=== PATIENT | female | born 1960 | race Caucasian/White ===

== ENCOUNTER 2017-10-04 17:50 | Emergency (ER) | payer MEDICAID ==
[~2017-10-04] VITALS: Ht 162.6 cm; Wt 68.2 kg
[2017-10-04 18:18] VITALS: Ht 162.6 cm; Wt 68.2 kg
[2017-10-04] MEDS ORDERED: BP MEDICATION (18:19)
[2017-10-04] MEDS ORDERED: ROBAXIN-750750 MG PO (20:28)
[2017-10-04 21:25] VITALS: BP 141/88
== END 2017-10-04 21:25 | disposition home or self-care (01) ==
LOC: D.ER 17:50
DX: S70.02XA Contusion of left hip, initial encounter (principal); W18.2XXA Fall in (into) shower or empty bathtub, initial encounter; Y93.E1 Activity, personal bathing and showering; Y92.012 Bathroom of single-family (private) house as the place of occurrence of the external cause; F41.9 Anxiety disorder, unspecified; F17.200 Nicotine dependence, unspecified, uncomplicated